=== PATIENT | male | born 1975 | race Two or more races ===

== ENCOUNTER 2020-11-02 18:58 | Emergency (ER) | payer OTHER, SELFPAY ==
[~2020-11-02] VITALS: Ht 180.3 cm; Wt 95.0 kg
[2020-11-02 22:41] VITALS: BP 139/86
[2020-11-02] MEDS ORDERED: KETOROLAC 30 MG/1 ML ONE (22:47)
[2020-11-02] MEDS ORDERED: KETOROLAC 30 MG/1 ML IM ONE (23:00)
--- NOTE | 2020-11-02 23:00 | NUR ---
Patient given discharge instructions and they have confirmed that they understand the instructions. NAD, all questions answered appropriately, denies additional needs at this time. No personal belongings left in room after discharge. Pt states he has a knee brace and crutches at home, will use those.
== END 2020-11-02 23:03 | disposition home or self-care (01) ==
LOC: ED 19:03
DX: G89.11 Acute pain due to trauma (principal); M25.561 Pain in right knee; X50.0XXA Overexertion from strenuous movement or load, initial encounter; Y93.89 Activity, other specified; Y92.009 Unspecified place in unspecified non-institutional (private) residence as the place of occurrence of the external cause; Y99.8 Other external cause status
CPT/HCPCS: 73564; 96372; 99283; J1885